=== PATIENT | male | born 1960 | race Two or more races ===

== ENCOUNTER 2017-06-13 18:15 | Emergency (ER) | payer OTHER ==
[~2017-06-13] VITALS: Ht 177.8 cm; Wt 106.6 kg
--- NOTE | 2017-06-13 18:25 | NUR ---
TO BED 1 A 57 YO MALE BIBSELF W C/O CHEST PAIN X 5 HOURS AND R LEG NUMBNESS. PATIENT IS AAOX4, AMBULATORY WITH STEADY GAIT, NAD NOTED. VSS. ON CARDIAC AND VS MONITORING. GOWNED. COMFORT MEASURES RENDERED. AWAITING FOR ER MD MARVIN.
--- NOTE | 2017-06-13 19:25 | NUR ---
STARTED A SALINE LOCK ON THE RIGHT HANG G18, BLOOD DRAWN AND SENT TO LAB.
--- NOTE | 2017-06-13 19:26 | NUR ---
DR CHAHAL AT BEDSIDE.
[2017-06-13] MEDS ORDERED: KETOROLAC TROMETHAMINE INJ 30 MG/ML VIAL IV ONE (19:30)
[2017-06-13] MEDS ORDERED: KETOROLAC TROMETHAMINE INJ 30 MG/ML VIAL ONE (19:43)
[2017-06-13 19:48] LABS: BASOPHILS # (AUTO) 0.1 /CMM (0.0-0.2); BASOPHILS % (AUTO) 1.3 % (0.0-2.0); EOSINOPHILS # (AUTO) 0.3 /CMM (0.0-0.7); EOSINOPHILS % (AUTO) 2.4 % (0.0-6.0); HEMATOCRIT 47 % (39-51); HEMOGLOBIN 15.8 g/dL (13.5-17.5); LYMPHOCYTES % (AUTO) 27.5 % (20.0-44.0); MEAN CORPUSCULAR HEMOGLOBIN 31 PG (26.0-33.0); MEAN CORPUSCULAR HGB CONC 34 g/dl (31.0-36.0); MEAN CORPUSCULAR VOLUME 90 fL (80-96); MONOCYTES # (AUTO) 0.5 /CMM (0.1-1.30); NEUTROPHILS # (AUTO) 7.1 /CMM (1.8-8.9); NEUTROPHILS % (AUTO) 63.8 % (43.0-81.0); PLATELET COUNT (AUTO) 188 /CMM (150-450); RDW COEFFICIENT OF VARIATION 12.1 (11.5-15.0); RED BLOOD CELL COUNT(AUTO) 5.17 MIL/uL (4.5-6.0)
[2017-06-13 19:55] LABS: PROTHROMBIN TIME 10.4 SECS (9.5-12.7)
[2017-06-13 20:13] LABS: CALCIUM, SERUM 8.5 mg/dL (8.5-10.1); CARBON DIOXIDE 25 mmol/L (21-32); CHLORIDE 106 mmol/L (98-107); GLUCOSE 94 mg/dL (74-106); POTASSIUM 3.6 mmol/L (3.5-5.1); SODIUM SERUM 139 mmol/L (136-145); UREA NITROGEN, BLOOD 13 mg/dL (7-18)
[2017-06-13 20:22] LABS: TROPONIN I < 0.017 ng/mL (0.00-0.056)
[2017-06-13 22:13] VITALS: BP 125/70
--- NOTE | 2017-06-13 22:13 | NUR ---
IV removed. Catheter intact and site benign. Pressure and 4x4 applied to site. No bleeding noted. Patient discharged to home in stable condition. Written and verbal after care instructions given. Patient verbalizes understanding of instruction. Patient is ambulatory with steady gait, no further complaints.
== END 2017-06-13 22:14 | disposition home or self-care (01) ==
LOC: EDBD 18:19 → ER 18:19
DX: R07.89 Other chest pain (principal); F41.9 Anxiety disorder, unspecified; F43.9 Reaction to severe stress, unspecified
CPT/HCPCS: 36415; 71010; 80048; 84484 ×2; 85025; 85730; 93005; 96374; 99285; A4606; J1885; Z7610

== ENCOUNTER 2023-07-19 12:47 | Emergency (ER) | payer MEDICAID, OTHER ==
[~2023-07-19] VITALS: Ht 175.3 cm; Wt 99.8 kg
[2023-07-19] MEDS ORDERED: MECL-159 PO (13:41)
[2023-07-19 13:48] VITALS: BP 137/92; TEMP 98.1; O2SAT 99
== END 2023-07-19 13:48 | disposition home or self-care (01) ==
LOC: ER 12:47
DX: S09.90XA Unspecified injury of head, initial encounter (principal); R42 Dizziness and giddiness; W22.8XXA Striking against or struck by other objects, initial encounter; Y93.89 Activity, other specified; Y92.89 Other specified places as the place of occurrence of the external cause; Y99.8 Other external cause status